=== PATIENT | male | born 1965 | race Caucasian/White ===

== ENCOUNTER 2021-01-02 17:27 | Inpatient (IN) | payer MEDICAID ==
[~2021-01-02] VITALS: Ht 182.9 cm; Wt 77.3 kg
[2021-01-02 18:12] LABS: BASOPHILS % (AUTO) 0.5 % (0-1); EOSINOPHILS % (AUTO) 0.4 % (0-6); HEMATOCRIT 42.6 % (42.0-52.0); HEMOGLOBIN 14.6 g/dl (14.0-17.9); LYMPHOCYTES # (AUTO) 0.9 X10'3 (1.1-4.8); LYMPHOCYTES % (AUTO) 15.2 % (21-51); MEAN CORPUSCULAR HEMOGLOBIN 31.4 PG (27.0-31.0); MEAN CORPUSCULAR HGB CONC 34.2 g/dL (33.0-36.5); MEAN CORPUSCULAR VOLUME 91.7 FL (78-98); MEAN PLATELET VOLUME 7.7 FL (7.4-10.4); MONOCYTES # (AUTO) 0.5 X10'3 (0-0.9); MONOCYTES % (AUTO) 8.6 % (2-12); NEUTROPHILS # (AUTO) 4.5 X10'3 (1.8-7.7); NEUTROPHILS % (AUTO) 75.3 % (42-75); PLATELET COUNT 254 X10'3 (140-440); RED BLOOD COUNT 4.65 X10'6 (4.70-6.10); RED CELL DISTRIBUTION WIDTH 13.5 % (11.5-14.5)
[2021-01-02 18:24] LABS: ANION GAP 10 (8-16); BILIRUBIN,TOTAL 0.3 MG/DL (0.1-1.0); BLOOD UREA NITROGEN 17 MG/DL (7-18); BUN/CREATININE RATIO 15.6 (5.4-32.0); CALCIUM 8.9 MG/DL (8.5-10.1); CHLORIDE 98 MMOL/L (99-107); CREATININE 1.09 MG/DL (0.60-1.10); GLUCOSE 95 MG/DL (70-104); POTASSIUM 4.4 MMOL/L (3.5-5.1); SODIUM 134 MMOL/L (135-145); TOTAL CARBON DIOXIDE 26.4 MMOL/L (24-32); eGFR 70 ML/MIN
[2021-01-02 18:25] LABS: ALANINE AMINOTRANSFERASE 63 U/L (12-78); ALBUMIN 3.2 G/DL (3.4-5.0); ALBUMIN/GLOBULIN RATIO 0.7 (1.1-1.5); ALKALINE PHOSPHATASE 107 IU/L (46-116); ASPARTATE AMINO TRANSFERASE 35 U/L (10-37); TOTAL PROTEIN 7.9 G/DL (6.4-8.2)
[2021-01-02] MEDS ORDERED: aspirin 81mg tab.chew PO ONE (19:50)
[2021-01-02] MEDS ORDERED: normal saline 1000ml 1,000 ML IV ONE (19:50)
[2021-01-02 20:04] LABS: C-REACTIVE PROTEIN 8.04 MG/DL (0.0-0.5); MAGNESIUM 1.9 MG/DL (1.5-2.4)
[2021-01-02 20:14] LABS: D-DIMER 0.34 MG/L FEU (0-0.50); PARTIAL THROMBOPLASTIN TIME 31 SECONDS (22-32)
[2021-01-02 20:28] LABS: ETHANOL < 0.010 GM/DL (0.0-0.010)
[2021-01-02] MEDS ORDERED: iohexol 350MG/ML 100ml bottle IV ONE (21:15)
--- NOTE | 2021-01-02 22:33 | NUR ---
HOSPITALIST AT BEDSIDE
[2021-01-02] MEDS ORDERED: CefTRIAXone 2gm/D5W 50ml BAG 50 ML IV ONE (22:35)
[2021-01-02] MEDS ORDERED: levoFLOXACIN-Levaquin 750MG/D5 150 ML IV ONE (22:35)
[2021-01-02] MEDS ORDERED: acetaminophen 325mg tablet PO PRN (23:00)
[2021-01-02] MEDS ORDERED: magnesium hydroxide 30ml (MOM) UD suspension PO PRN (23:00)
[2021-01-02] MEDS ORDERED: ondansetron/PF 4mg/2ml inj IV PRN (23:00)
[2021-01-02] MEDS ORDERED: potassium Cl 20 mEq SR tablet PO PRN ×2 (23:00)
[2021-01-02] MEDS ORDERED: mag hydrox/Alum hydrox/simeth 30ml oral suspension PO PRN (23:00)
[2021-01-02] MEDS ORDERED: potassium Cl 40MEQ/1/2NS 520ml 520 ML IV PRN ×2 (23:00)
--- NOTE | 2021-01-02 23:40 | NUR ---
Patient in room PCU 3008. I have received report from COLE Rios and had the opportunity to ask questions and assume patient care.
[2021-01-03 00:15] VITALS: BP 145/91
[2021-01-03] MEDS ORDERED: LORazepam 1 MG tablet PO PRN ×2 (04:55→05:15)
--- NOTE | 2021-01-03 05:00 | NUR ---
Pt appears very restless and is complaining about feeling anxious. Called Dr. Story and got an order for Ativan 1 mg PO q4h PRN anxiety.
--- NOTE | 2021-01-03 06:27 | NUR ---
Problems reprioritized. Patient report given, questions answered & plan of care reviewed with COLE Larios.
[2021-01-03 07:09] LABS: BASOPHILS % (AUTO) 0.5 % (0-1); EOSINOPHILS % (AUTO) 0.5 % (0-6); HEMATOCRIT 39.1 % (42.0-52.0); HEMOGLOBIN 13.2 g/dl (14.0-17.9); LYMPHOCYTES # (AUTO) 0.8 X10'3 (1.1-4.8); MEAN CORPUSCULAR HEMOGLOBIN 31.1 PG (27.0-31.0); MEAN CORPUSCULAR HGB CONC 33.9 g/dL (33.0-36.5); MEAN CORPUSCULAR VOLUME 91.7 FL (78-98); MEAN PLATELET VOLUME 7.9 FL (7.4-10.4); MONOCYTES # (AUTO) 0.4 X10'3 (0-0.9); MONOCYTES % (AUTO) 11.2 % (2-12); NEUTROPHILS # (AUTO) 2.2 X10'3 (1.8-7.7); NEUTROPHILS % (AUTO) 64.8 % (42-75); PLATELET COUNT 189 X10'3 (140-440); RED BLOOD COUNT 4.26 X10'6 (4.70-6.10); RED CELL DISTRIBUTION WIDTH 13.6 % (11.5-14.5); WHITE BLOOD COUNT 3.4 X10'3 (4.5-11.0)
[2021-01-03] MEDS ORDERED: ASPI-1397 PO (07:20)
[2021-01-03] MEDS ORDERED: ATEN25TA PO (07:20)
[2021-01-03] MEDS ORDERED: ATOR20TA66 PO (07:20)
[2021-01-03 07:31] LABS: ALANINE AMINOTRANSFERASE 51 U/L (12-78); ALBUMIN 2.6 G/DL (3.4-5.0); ALBUMIN/GLOBULIN RATIO 0.6 (1.1-1.5); ALKALINE PHOSPHATASE 83 IU/L (46-116); ANION GAP 8 (8-16); ASPARTATE AMINO TRANSFERASE 23 U/L (10-37); BILIRUBIN,TOTAL 0.1 MG/DL (0.1-1.0); BLOOD UREA NITROGEN 15 MG/DL (7-18); CALCIUM 8.3 MG/DL (8.5-10.1); CHLORIDE 101 MMOL/L (99-107); CREATININE 0.88 MG/DL (0.60-1.10); GLUCOSE 91 MG/DL (70-104); POTASSIUM 4.3 MMOL/L (3.5-5.1); SODIUM 134 MMOL/L (135-145); TOTAL CARBON DIOXIDE 25.5 MMOL/L (24-32); TOTAL PROTEIN 6.8 G/DL (6.4-8.2); eGFR 90 ML/MIN
[2021-01-03] MEDS ORDERED: K and/or MAG REPLACEMENT MC SCH (08:00)
[2021-01-03] MEDS ORDERED: heparin, porcine 5000 units/ml vial SQ SCH (08:00)
[2021-01-03] MEDS ORDERED: CefTRIAXone/D5W-Rocephin 1gm 50 ML IV SCH (22:00)
== END 2021-01-03 12:54 | disposition home or self-care (01) | DRG 137 ==
LOC: ER 17:27 → ED HOLD 22:58 → PCU 3S 23:43
PROVIDERS: ADMIT Internal Medicine; ATTEND Internal Medicine
PROC: B32T1ZZ Computerized Tomography (CT Scan) of Left Pulmonary Artery using Low Osmolar Contrast (ICD-10-PCS; principal; 2021-01-02)
PROC: B32S1ZZ Computerized Tomography (CT Scan) of Right Pulmonary Artery using Low Osmolar Contrast (ICD-10-PCS; 2021-01-02)
DX: U07.1 COVID-19 (principal); J12.82 Pneumonia due to coronavirus disease 2019; F17.290 Nicotine dependence, other tobacco product, uncomplicated; J45.909 Unspecified asthma, uncomplicated; M19.012 Primary osteoarthritis, left shoulder; R94.39 Abnormal result of other cardiovascular function study
CPT/HCPCS: 36415; 71045; 71275; 80053; 80320; 83605; 83735; 83880; 84145; 84443; 84484; 85025; 85379; 85610; 85651; 85730; 86140; 87040; 87081; 87635; 93005; 96365; 99285; C9803; G0378; J0696; J1644; J1956; J7030; Q9967

== ENCOUNTER 2021-07-02 10:15 | Day surgery (SDC) | payer MEDICAID ==
[2021-06-27 13:26] LABS: BASOPHILS # (AUTO) 0.1 X10'3 (0-0.2); EOSINOPHILS # (AUTO) 0.1 X10'3 (0-0.9); EOSINOPHILS % (AUTO) 1.6 % (0-6); HEMATOCRIT 42.3 % (42.0-52.0); HEMOGLOBIN 14.4 g/dl (14.0-17.9); LYMPHOCYTES % (AUTO) 36.9 % (21-51); MEAN CORPUSCULAR HEMOGLOBIN 31.1 PG (27.0-31.0); MEAN CORPUSCULAR HGB CONC 34.1 g/dL (33.0-36.5); MEAN CORPUSCULAR VOLUME 91.2 FL (78-98); MEAN PLATELET VOLUME 7.7 FL (7.4-10.4); MONOCYTES # (AUTO) 0.4 X10'3 (0-0.9); MONOCYTES % (AUTO) 7.9 % (2-12); NEUTROPHILS # (AUTO) 2.9 X10'3 (1.8-7.7); NEUTROPHILS % (AUTO) 52.6 % (42-75); PLATELET COUNT 286 X10'3 (140-440); RED BLOOD COUNT 4.64 X10'6 (4.70-6.10); RED CELL DISTRIBUTION WIDTH 13.7 % (11.5-14.5); WHITE BLOOD COUNT 5.4 X10'3 (4.5-11.0)
[2021-06-27 13:34] LABS: PARTIAL THROMBOPLASTIN TIME 29 SECONDS (22-32)
[2021-06-27 13:35] LABS: ALANINE AMINOTRANSFERASE 35 U/L (12-78); ALBUMIN 3.5 G/DL (3.4-5.0); ALBUMIN/GLOBULIN RATIO 0.9 (1.1-1.5); ALKALINE PHOSPHATASE 96 IU/L (46-116); ANION GAP 10 (8-16); ASPARTATE AMINO TRANSFERASE 21 U/L (10-37); BILIRUBIN,TOTAL 0.3 MG/DL (0.1-1.0); BLOOD UREA NITROGEN 23 MG/DL (7-18); BUN/CREATININE RATIO 19.2 (5.4-32.0); CALCIUM 9.1 MG/DL (8.5-10.1); CHLORIDE 106 MMOL/L (99-107); GLUCOSE 99 MG/DL (70-104); POTASSIUM 4.5 MMOL/L (3.5-5.1); SODIUM 143 MMOL/L (135-145); TOTAL CARBON DIOXIDE 27.3 MMOL/L (24-32); TOTAL PROTEIN 7.5 G/DL (6.4-8.2); eGFR 63 ML/MIN
[~2021-07-02] VITALS: Ht 185.4 cm; Wt 81.3 kg
[2021-07-02] VITALS (13 sets, daily range): BP systolic 115–140; BP diastolic 59–87
[~2021-07-02 10:15] MED LIST: ASPI-1397 PO; ATEN25TA PO; ATOR20TA66 PO
[2021-07-02] MEDS ORDERED: ASPI-10 PO (10:52)
[2021-07-02] MEDS ORDERED: diphenhydrAMINE 25mg capsule PO ONE (11:30)
[2021-07-02] MEDS ORDERED: LORazepam 0.5 MG tablet PO PRN (11:30)
[2021-07-02] MEDS ORDERED: normal saline 1000ml 1,000 ML IV SCH (11:30)
[2021-07-02] MEDS ORDERED: fentaNYL/PF 50MCG/1 ML 2ML syringe ONE (12:16)
[2021-07-02] MEDS ORDERED: iohexol 350 MG/ML 50ML vial IV ONE ×2 (12:16→13:02)
[2021-07-02] MEDS ORDERED: iohexol 350MG/ML 100ml bottle IV ONE (12:16)
[2021-07-02] MEDS ORDERED: midazolam 1 mg/ML 2ml injection ONE (12:16)
[2021-07-02] MEDS ORDERED: LIDOcaine 1% (10mg/ml)w/preservative injection 20ml MDV ONE (12:16)
[2021-07-02] MEDS ORDERED: acetaminophen 325mg tablet PO PRN (13:40)
[2021-07-02] MEDS ORDERED: proCHLORperazine 10 MG/2 ml inj IV PRN (13:40)
[2021-07-02] MEDS ORDERED: ondansetron/PF 4mg/2ml inj IV PRN (13:40)
[2021-07-02] MEDS ORDERED: OXAZEpam 15mg capsule PO PRN (13:40)
[2021-07-02] MEDS ORDERED: HYDROcodone/acetaminophen 10/325mg tab PO PRN (13:40)
[2021-07-02] MEDS ORDERED: HYDROcodone/acetaminophen 5mg/325mg tablet PO PRN (13:40)
== END 2021-07-02 19:14 | disposition home or self-care (01) ==
LOC: SSTAY O 10:15
PROVIDERS: ATTEND Internal Medicine Cardiovascular Disease
DX: R94.39 Abnormal result of other cardiovascular function study (principal); R06.09 Other forms of dyspnea; I25.10 Atherosclerotic heart disease of native coronary artery without angina pectoris; E78.5 Hyperlipidemia, unspecified; F17.210 Nicotine dependence, cigarettes, uncomplicated; F12.90 Cannabis use, unspecified, uncomplicated; Z72.89 Other problems related to lifestyle; Z88.1 Allergy status to other antibiotic agents; Z98.890 Other specified postprocedural states; Z79.82 Long term (current) use of aspirin; Z79.01 Long term (current) use of anticoagulants; Z79.899 Other long term (current) drug therapy
CPT/HCPCS: 36415; 71046; 80053; 85025; 85610; 85730; 93459; 99152; C1760; C1769; J1644; J2001; J2250; J3010; Q0163; Q9967; 93458; A4620; A6258

== ENCOUNTER 2022-04-24 12:55 | Outpatient (CLI) | payer MEDICAID ==
[~2022-04-24] VITALS: Ht 182.9 cm; Wt 79.4 kg
[~2022-04-24 12:55] MED LIST changes: +ASPI-10 PO; -ASPI-1397 PO; -ATEN25TA PO; -ATOR20TA66 PO
[2022-04-24] MEDS ORDERED: albuterol 2.5 MG/3 ML nebule NEB ONE (15:50)
== END 2022-04-24 23:59 | disposition home or self-care (01) ==
LOC: RAD 12:55
PROVIDERS: ATTEND Internal Medicine
DX: I05.8 Other rheumatic mitral valve diseases (principal); I27.20 Pulmonary hypertension, unspecified; M95.4 Acquired deformity of chest and rib; Z79.82 Long term (current) use of aspirin; Z79.899 Other long term (current) drug therapy; Z87.891 Personal history of nicotine dependence
CPT/HCPCS: 71046; 78582; 93306; 94060; 94727; 94729; 94760; A9539; A9540

== ENCOUNTER → 2023-08-21 | Emergency (ER) | payer MEDICAID ==
[~2023-08-21] VITALS: Ht 182.9 cm; Wt 87.1 kg
[2023-08-21 16:26] VITALS: BP 96/66; PULSE 103; RESP 20; TEMP 98.3; O2SAT 96
[2023-08-21 16:49] LABS: BILIRUBIN,URINE NEGATIVE (Neg); CLARITY,URINE CLEAR (Clear); COLOR,URINE YELLOW (Yellow); GLUCOSE, URINE NEGATIVE (Neg); KETONES,URINE NEGATIVE (Neg); LEUKOCYTE ESTERASE ,URINE NEGATIVE (Neg); NITRITES, URINE NEGATIVE (Neg); OCCULT BLOOD,URINE TRACE-INTACT (Neg); PROTEIN,URINE TRACE mg/dl (Neg)
[2023-08-21 16:53] LABS: UA COLLECTION TYPE CLN CATCH MIDSTREAM
[2023-08-21 16:54] LABS: BACTERIA,URINE NONE SEEN /HPF (Neg); MUCUS STRANDS NONE SEEN /LPF (Neg); SQUAMOUS EPITHELIAL CELL,UR MODERATE /LPF (FEW); WBC,URINE 0-4 /HPF (0-4)
[2023-08-21 17:04] LABS: BASOPHILS % (AUTO) 0.3 % (0-1); EOSINOPHILS # (AUTO) 0.1 X10'3 (0-0.9); EOSINOPHILS % (AUTO) 0.8 % (0-6); HEMATOCRIT 34.5 % (42.0-52.0); HEMOGLOBIN 11.8 g/dl (14.0-17.9); LYMPHOCYTES # (AUTO) 0.7 X10'3 (1.1-4.8); LYMPHOCYTES % (AUTO) 6.8 % (21-51); MEAN CORPUSCULAR HEMOGLOBIN 31.5 PG (27.0-31.0); MEAN CORPUSCULAR HGB CONC 34.1 g/dL (33.0-36.5); MEAN CORPUSCULAR VOLUME 92.2 FL (78-98); MEAN PLATELET VOLUME 7.7 FL (7.4-10.4); MONOCYTES # (AUTO) 0.8 X10'3 (0-0.9); MONOCYTES % (AUTO) 8.1 % (2-12); NEUTROPHILS # (AUTO) 8.7 X10'3 (1.8-7.7); PLATELET COUNT 231 X10'3 (140-440); RED BLOOD COUNT 3.75 X10'6 (4.70-6.10); WHITE BLOOD COUNT 10.4 X10'3 (4.5-11.0)
[2023-08-21 17:18] LABS: ALANINE AMINOTRANSFERASE 42 U/L (12-78); ALBUMIN 2.5 G/DL (3.4-5.0); ALBUMIN/GLOBULIN RATIO 0.6 (1.1-1.5); ALKALINE PHOSPHATASE 107 IU/L (46-116); ANION GAP 9 (8-16); ASPARTATE AMINO TRANSFERASE 23 U/L (10-37); BILIRUBIN,TOTAL 0.3 MG/DL (0.1-1.0); BLOOD UREA NITROGEN 21 MG/DL (7-18); BUN/CREATININE RATIO 10.8 (10.0-20.0); CALCIUM 8.8 MG/DL (8.5-10.1); CHLORIDE 103 MMOL/L (99-107); CREATININE 1.94 MG/DL (0.60-1.10); GLUCOSE 154 MG/DL (70-104); LIPASE 44 U/L (16-77); POTASSIUM 4.2 MMOL/L (3.5-5.1); SODIUM 136 MMOL/L (135-145); TOTAL CARBON DIOXIDE 23.7 MMOL/L (24-32); TOTAL PROTEIN 6.9 G/DL (6.4-8.2); eCRCL 47 ML/MIN; eGFR 36 ML/MIN
== END | disposition left against medical advice (07) ==
LOC: ER 15:57
DX: N20.0 Calculus of kidney (principal); Z53.21 Procedure and treatment not carried out due to patient leaving prior to being seen by health care provider
CPT/HCPCS: 36415; 80053; 81001; 83690; 85025; 99281

== ENCOUNTER 2023-08-22 13:57 | Emergency (ER) | payer MEDICAID ==
[~2023-08-22] VITALS: Ht 182.9 cm; Wt 87.5 kg
[2023-08-22 14:22] LABS: BILIRUBIN,URINE NEGATIVE (Neg); CLARITY,URINE CLEAR (Clear); COLOR,URINE YELLOW (Yellow); GLUCOSE, URINE NEGATIVE (Neg); KETONES,URINE NEGATIVE (Neg); LEUKOCYTE ESTERASE ,URINE NEGATIVE (Neg); NITRITES, URINE NEGATIVE (Neg); OCCULT BLOOD,URINE NEGATIVE (Neg); PH,URINE 5.5 (4.8-8.0); PROTEIN,URINE NEGATIVE (Neg); UROBILINOGEN,URINE 0.2 E.U/dL (0.2-1.0)
[2023-08-22 14:27] LABS: UA COLLECTION TYPE CLN CATCH MIDSTREAM
[2023-08-22 15:10] LABS: ALANINE AMINOTRANSFERASE 46 U/L (12-78); ALBUMIN 2.4 G/DL (3.4-5.0); ALBUMIN/GLOBULIN RATIO 0.5 (1.1-1.5); ALKALINE PHOSPHATASE 113 IU/L (46-116); ANION GAP 10 (8-16); ASPARTATE AMINO TRANSFERASE 25 U/L (10-37); BILIRUBIN,TOTAL 0.3 MG/DL (0.1-1.0); BLOOD UREA NITROGEN 28 MG/DL (7-18); BUN/CREATININE RATIO 14.8 (10.0-20.0); CALCIUM 8.8 MG/DL (8.5-10.1); CHLORIDE 101 MMOL/L (99-107); CREATININE 1.89 MG/DL (0.60-1.10); GLUCOSE 102 MG/DL (70-104); LIPASE 33 U/L (16-77); SODIUM 136 MMOL/L (135-145); TOTAL CARBON DIOXIDE 24.9 MMOL/L (24-32); TOTAL PROTEIN 6.8 G/DL (6.4-8.2); eCRCL 48 ML/MIN; eGFR 37 ML/MIN
[2023-08-22 15:18] LABS: BASOPHILS % (AUTO) 0.3 % (0-1); EOSINOPHILS # (AUTO) 0.1 X10'3 (0-0.9); HEMATOCRIT 31.8 % (42.0-52.0); HEMOGLOBIN 10.9 g/dl (14.0-17.9); LYMPHOCYTES % (AUTO) 10.5 % (21-51); MEAN CORPUSCULAR HEMOGLOBIN 31.3 PG (27.0-31.0); MEAN CORPUSCULAR HGB CONC 34.1 g/dL (33.0-36.5); MEAN CORPUSCULAR VOLUME 91.7 FL (78-98); MEAN PLATELET VOLUME 7.9 FL (7.4-10.4); MONOCYTES % (AUTO) 10.6 % (2-12); NEUTROPHILS # (AUTO) 7.4 X10'3 (1.8-7.7); NEUTROPHILS % (AUTO) 77.6 % (42-75); PLATELET COUNT 228 X10'3 (140-440); RED BLOOD COUNT 3.47 X10'6 (4.70-6.10); RED CELL DISTRIBUTION WIDTH 13.7 % (11.5-14.5); WHITE BLOOD COUNT 9.6 X10'3 (4.5-11.0)
[2023-08-22] MEDS ORDERED: ketorolac trometh inj. 60 MG/2 ML VIAL IM ONE (19:55)
[2023-08-22 20:15] VITALS: BP 142/98; PULSE 88; TEMP 98.4; O2SAT 99
[2023-08-22 20:18] VITALS: RESP 16
== END 2023-08-22 20:19 | disposition home or self-care (01) ==
LOC: ER 13:58
DX: R10.9 Unspecified abdominal pain (principal); R11.0 Nausea; F15.90 Other stimulant use, unspecified, uncomplicated; Z88.1 Allergy status to other antibiotic agents; Z79.82 Long term (current) use of aspirin
CPT/HCPCS: 36415; 80053; 81003; 83690; 85025; 96372; 99283; J1885

== ENCOUNTER 2023-09-06 07:10 | Inpatient (IN) | payer MEDICAID ==
[~2023-09-06] VITALS: Ht 182.9 cm; Wt 79.5 kg
[2023-09-06] VITALS (11 sets, daily range): BP systolic 91–168; BP diastolic 52–80; PULSE 78–92; RESP 12–18; TEMP 97.4–97.9; O2SAT 95–98
[2023-09-06] MEDS ORDERED: pantoprazole 40mg IV 80 MG in normal saline 100ml IV soln 100 ML IV ONE (07:40)
[2023-09-06] MEDS ORDERED: pantoprazole 40 MG vial IV ONE (07:50)
[2023-09-06] MEDS ORDERED: pantoprazole 40MG/NS 100ML BAG 100 ML IV SCH ×4 (08:01→20:00)
[2023-09-06] MEDS ORDERED: octreotide inj. 500 MCG in normal saline 100ml IV soln 97.5 ML IV SCH (08:05)
[2023-09-06] MEDS ORDERED: octreotide 100mcg/1 ml ampule IV ONE (08:05)
[2023-09-06 09:47] LABS: BASOPHILS # (AUTO) 0.1 X10'3 (0-0.2); BASOPHILS % (AUTO) 0.9 % (0-1); EOSINOPHILS # (AUTO) 0.1 X10'3 (0-0.9); EOSINOPHILS % (AUTO) 1.6 % (0-6); HEMATOCRIT 27.3 % (42.0-52.0); HEMOGLOBIN 9.1 g/dl (14.0-17.9); LYMPHOCYTES # (AUTO) 1.4 X10'3 (1.1-4.8); LYMPHOCYTES % (AUTO) 15.7 % (21-51); MEAN CORPUSCULAR HEMOGLOBIN 29.9 PG (27.0-31.0); MEAN CORPUSCULAR HGB CONC 33.3 g/dL (33.0-36.5); MEAN CORPUSCULAR VOLUME 89.7 FL (78-98); MEAN PLATELET VOLUME 6.9 FL (7.4-10.4); MONOCYTES # (AUTO) 0.8 X10'3 (0-0.9); MONOCYTES % (AUTO) 9.4 % (2-12); NEUTROPHILS # (AUTO) 6.3 X10'3 (1.8-7.7); NEUTROPHILS % (AUTO) 72.4 % (42-75); PLATELET COUNT 438 X10'3 (140-440); RED BLOOD COUNT 3.04 X10'6 (4.70-6.10); RED CELL DISTRIBUTION WIDTH 14.9 % (11.5-14.5); WHITE BLOOD COUNT 8.7 X10'3 (4.5-11.0)
[2023-09-06] MEDS ORDERED: magnesium hydroxide 30ml (MOM) UD suspension PO PRN (10:20)
[2023-09-06] MEDS ORDERED: HYDROmorphone/PF 0.2 MG/ML SYRINGE IV PRN (10:20)
[2023-09-06] MEDS ORDERED: LIDOcaine 2% 10ml TOPICAL JELLY (Urojet) TP ONE (10:20)
[2023-09-06] MEDS ORDERED: magnesium 2GM in 50ml NS 50 ML IV PRN (10:20)
[2023-09-06] MEDS ORDERED: LidoCAINE 2% Topical Jelly 11mL syringe TOP ONE (10:20)
[2023-09-06] MEDS ORDERED: ondansetron 4mg rapidly disintigrating tab PO PRN (10:20)
[2023-09-06] MEDS ORDERED: HYDROcodone/acetaminophen 10/325mg tab PO PRN (10:20)
[2023-09-06] MEDS ORDERED: HYDROcodone/acetaminophen 5mg/325mg tablet PO PRN (10:20)
[2023-09-06] MEDS: normal saline 1000ml 1,000 ML IV SCH ×3 (10:20→23:06)
[2023-09-06] MEDS ORDERED: HYDROmorphone inj. 0.5 MG/0.5 ML DISP.SYRIN IV PRN (10:20)
[2023-09-06] MEDS ORDERED: potassium Cl 20 mEq SR tablet PO PRN ×2 (10:20)
[2023-09-06] MEDS ORDERED: mag hydrox/Alum hydrox/simeth 30ml oral suspension PO PRN (10:20)
[2023-09-06] MEDS ORDERED: acetaminophen 325mg tablet PO PRN ×2 (10:20)
[2023-09-06] MEDS ORDERED: magnesium 4gm in 100ml NS 100 ML IV PRN (10:20)
[2023-09-06] MEDS ORDERED: magnesium Cl slow-release 64mg tablet PO PRN (10:20)
[2023-09-06] MEDS ORDERED: ondansetron/PF 4mg/2ml inj IV PRN (10:20)
[2023-09-06] MEDS ORDERED: potassium Cl 40MEQ/1/2NS 520ml 520 ML IV PRN (10:20)
[2023-09-06] MEDS ORDERED: LIDOcaine Viscous 15ml cup ONE (10:37)
[2023-09-06] MEDS ORDERED: fentaNYL/PF 50MCG/1 ML 2ML syringe ONE (10:37)
[2023-09-06] MEDS ORDERED: MIDAZolam 1 MG/ML 5ML VIAL ONE (10:37)
[2023-09-06 10:39] LABS: ALANINE AMINOTRANSFERASE 17 U/L (12-78); ALBUMIN 2.3 G/DL (3.4-5.0); ALBUMIN/GLOBULIN RATIO 0.5 (1.1-1.5); ALKALINE PHOSPHATASE 70 IU/L (46-116); ANION GAP 8 (8-16); ASPARTATE AMINO TRANSFERASE 17 U/L (10-37); BILIRUBIN,TOTAL 0.5 MG/DL (0.1-1.0); BLOOD UREA NITROGEN 23 MG/DL (7-18); BUN/CREATININE RATIO 18.5 (10.0-20.0); CALCIUM 8.7 MG/DL (8.5-10.1); CHLORIDE 106 MMOL/L (99-107); CREATININE 1.24 MG/DL (0.60-1.10); GLUCOSE 93 MG/DL (70-104); POTASSIUM 4.6 MMOL/L (3.5-5.1); SODIUM 138 MMOL/L (135-145); TOTAL CARBON DIOXIDE 24.1 MMOL/L (24-32); TOTAL PROTEIN 6.6 G/DL (6.4-8.2); eCRCL 73 ML/MIN; eGFR 60 ML/MIN
[2023-09-06 11:07] LABS: MAGNESIUM 1.6 MG/DL (1.5-2.4)
[2023-09-06 12:44] LABS: APTT 27 SECONDS (22-32); PROTHROMBIN TIME 10.3 SECONDS (9.0-12.0)
[2023-09-06 13:48] LABS: BILIRUBIN,URINE NEGATIVE (Neg); COLOR,URINE YELLOW (Yellow); GLUCOSE, URINE NEGATIVE (Neg); KETONES,URINE NEGATIVE (Neg); LEUKOCYTE ESTERASE ,URINE NEGATIVE (Neg); NITRITES, URINE NEGATIVE (Neg); OCCULT BLOOD,URINE LARGE (Neg); PROTEIN,URINE NEGATIVE (Neg); UROBILINOGEN,URINE 0.2 E.U/dL (0.2-1.0)
[2023-09-06 14:01] LABS: CLARITY,URINE SLIGHTLY CLOUDY (Clear); UA COLLECTION TYPE FOLEY CATH
[2023-09-06 14:03] LABS: RBC,URINE TNTC /HPF (0-2); WBC,URINE 20-30 /HPF (0-4)
[2023-09-06 14:04] LABS: BACTERIA,URINE FEW /HPF (Neg); COARSE GRANULAR CAST 0-3 /LPF (NEGATIVE); MUCUS STRANDS NONE SEEN /LPF (Neg); SQUAMOUS EPITHELIAL CELL,UR FEW /LPF (FEW); WBC CLUMPS,URINE FEW /HPF (NEGATIVE)
[2023-09-06] MEDS ORDERED: IBUP-1984 PO (16:38)
[2023-09-06] MEDS ORDERED: FLO0.4C PO (16:39)
[2023-09-06] MEDS ORDERED: HYDR-3965 PO (16:39)
[2023-09-06] MEDS ORDERED: DOCU100C40 PO (16:40)
[2023-09-06] MEDS ORDERED: PANT-47 PO (16:41)
[2023-09-06] MEDS: pantoprazole 40 MG vial IV SCH (19:54)
[2023-09-06] MEDS: K and/or MAG REPLACEMENT MC SCH (20:00)
[2023-09-06] MEDS: docusate sod 100mg capsule PO SCH (20:39)
[2023-09-06] MEDS ORDERED: temazepam 15mg capsule PO PRN (21:00)
[2023-09-07 06:00] VITALS: BP 138/94; PULSE 73; RESP 22; TEMP 98; O2SAT 96
[2023-09-07 06:27] LABS: BASOPHILS # (AUTO) 0.1 X10'3 (0-0.2); EOSINOPHILS # (AUTO) 0.2 X10'3 (0-0.9); EOSINOPHILS % (AUTO) 2.3 % (0-6); HEMATOCRIT 27.3 % (42.0-52.0); HEMOGLOBIN 9.1 g/dl (14.0-17.9); LYMPHOCYTES # (AUTO) 1.3 X10'3 (1.1-4.8); LYMPHOCYTES % (AUTO) 17.9 % (21-51); MEAN CORPUSCULAR HGB CONC 33.4 g/dL (33.0-36.5); MEAN PLATELET VOLUME 6.7 FL (7.4-10.4); MONOCYTES # (AUTO) 0.7 X10'3 (0-0.9); NEUTROPHILS # (AUTO) 5.1 X10'3 (1.8-7.7); NEUTROPHILS % (AUTO) 68.8 % (42-75); PLATELET COUNT 397 X10'3 (140-440); RED BLOOD COUNT 3.03 X10'6 (4.70-6.10); RED CELL DISTRIBUTION WIDTH 14.9 % (11.5-14.5); WHITE BLOOD COUNT 7.4 X10'3 (4.5-11.0)
[2023-09-07 06:36] LABS: ALANINE AMINOTRANSFERASE 18 U/L (12-78); ALBUMIN 2.2 G/DL (3.4-5.0); ALBUMIN/GLOBULIN RATIO 0.5 (1.1-1.5); ALKALINE PHOSPHATASE 74 IU/L (46-116); ANION GAP 5 (8-16); ASPARTATE AMINO TRANSFERASE 15 U/L (10-37); BILIRUBIN,TOTAL 0.3 MG/DL (0.1-1.0); BLOOD UREA NITROGEN 17 MG/DL (7-18); BUN/CREATININE RATIO 14.3 (10.0-20.0); CALCIUM 8.6 MG/DL (8.5-10.1); CHLORIDE 105 MMOL/L (99-107); CREATININE 1.19 MG/DL (0.60-1.10); GLUCOSE 93 MG/DL (70-104); MAGNESIUM 1.3 MG/DL (1.5-2.4); POTASSIUM 4.3 MMOL/L (3.5-5.1); SODIUM 137 MMOL/L (135-145); TOTAL CARBON DIOXIDE 27.5 MMOL/L (24-32); TOTAL PROTEIN 6.3 G/DL (6.4-8.2); eCRCL 76 ML/MIN; eGFR 63 ML/MIN
[2023-09-07] MEDS: docusate sod 100mg capsule PO SCH (08:00)
[2023-09-07] MEDS: K and/or MAG REPLACEMENT MC SCH (08:00)
[2023-09-07] MEDS ORDERED: tamsulosin 0.4mg capsule PO SCH (08:00)
[2023-09-07] MEDS: pantoprazole 40 MG vial IV SCH (09:09)
[2023-09-07 12:00] VITALS: BP 130/67; PULSE 60; RESP 16; TEMP 97.3; O2SAT 93
[2023-09-07] MEDS ORDERED: PANT-47 PO (13:23)
[2023-09-07] MEDS ORDERED: SULF1TAB49 PO (13:23)
== END 2023-09-07 15:15 | disposition home or self-care (01) | DRG 241 ==
LOC: ER 07:10 → ED HOLD 10:23 → EDBEDREQ 12:38 → ORTHO 4S 13:45
PROVIDERS: ADMIT Family Medicine; ATTEND Family Medicine
PROC: 0DB58ZX Excision of Esophagus, Via Natural or Artificial Opening Endoscopic, Diagnostic (ICD-10-PCS; principal; 2023-09-06)
DX: K26.4 Chronic or unspecified duodenal ulcer with hemorrhage (principal); K22.11 Ulcer of esophagus with bleeding; D64.9 Anemia, unspecified; I10 Essential (primary) hypertension; J44.9 Chronic obstructive pulmonary disease, unspecified; F17.210 Nicotine dependence, cigarettes, uncomplicated; K44.9 Diaphragmatic hernia without obstruction or gangrene; N13.2 Hydronephrosis with renal and ureteral calculous obstruction; T39.395A Adverse effect of other nonsteroidal anti-inflammatory drugs [NSAID], initial encounter; Y92.89 Other specified places as the place of occurrence of the external cause; Z87.442 Personal history of urinary calculi; Z88.1 Allergy status to other antibiotic agents
CPT/HCPCS: 36415; 43239; 71045; 74176; 80053; 81001; 82140; 83735; 85025; 85610; 85730; 86885; 86900; 86901; 87081; 87088; 93005; 99152; 99285; A4314; A4620; A6258; C9113; G0378; J1170; J2250; J2354; J3010; J3490; J7030